=== PATIENT | female | born 1990 | race Two or more races ===

== ENCOUNTER 2020-11-01 03:27 | Emergency (ER) | payer MEDICAID ==
[~2020-11-01] VITALS: Ht 157.5 cm; Wt 54.4 kg
[2020-11-01] MEDS ORDERED: NALOXONE HCL 1MG/ML 2ML SYRINGE IV ONE (03:45)
[2020-11-01 05:01] VITALS: BP 125/59
[2020-11-01 05:44] LABS: Alcohol, Urine < 3.0 mg/dL (0-10); Amphetamine Screen, Urine POSITIVE (NEGATIVE); Barbiturate Scree,Urine NEGATIVE (NEGATIVE); Benzodiazephine Screen, Urine NEGATIVE (NEGATIVE); Cannabinoid Screen, Urine POSITIVE (NEGATIVE); Cocaine Screen, Urine NEGATIVE (NEGATIVE); Opiate Scree,Urine NEGATIVE (NEGATIVE); Phencyclidine Screen, Urine NEGATIVE (NEGATIVE)
== END 2020-11-01 07:08 | disposition home or self-care (01) ==
LOC: EDBD 03:27 → ER 03:31
DX: F19.10 Other psychoactive substance abuse, uncomplicated (principal); F17.210 Nicotine dependence, cigarettes, uncomplicated
CPT/HCPCS: 36415; 80307; 80320; 96374; 99283; J2310